=== PATIENT | male | born 1980 ===

== ENCOUNTER 2024-04-22 15:58 | Emergency (ER) | payer OTHER ==
[~2024-04-22] VITALS: Ht 177.8 cm; Wt 80.7 kg
[2024-04-22] MEDS ORDERED: SULF1TAB48 PO (17:34)
[2024-04-22] MEDS ORDERED: NEOMY/BACITRA/POLYMYXIN B OINT UD PACKET TP ONE (17:36)
[2024-04-22] MEDS: NEOMY/BACITRA/POLYMYXIN B OINT UD PACKET TP ONE (17:41)
[2024-04-22 18:39] VITALS: BP 138/78; TEMP 98.3; O2SAT 98
== END 2024-04-22 18:39 | disposition home or self-care (01) ==
LOC: ER 16:12
DX: S61.231A Puncture wound without foreign body of left index finger without damage to nail, initial encounter (principal); Z79.899 Other long term (current) drug therapy; X58.XXXA Exposure to other specified factors, initial encounter; Y93.89 Activity, other specified; Y92.89 Other specified places as the place of occurrence of the external cause; Y99.8 Other external cause status
CPT/HCPCS: 64450; 99284; J3490; A4606; A4663